=== PATIENT | male | born 1995 | race Caucasian/White ===

== ENCOUNTER 2022-11-11 18:06 | Emergency (ER) | payer OTHER, SELFPAY ==
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
[2022-11-11 18:10] VITALS: BP 112/58; BP 118/71; PULSE 84; PULSE 88; RESP 16; TEMP 37.1; O2SAT 99; BMI 27.1
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
[2022-11-11 19:32] VITALS: BP 131/67; PULSE 84; RESP 20; TEMP 36.5; O2SAT 97
== END 2022-11-11 20:22 | disposition home or self-care (01) ==
PROVIDERS: Emergency Provider Internal Medicine
DX: S43.402A Unspecified sprain of left shoulder joint, initial encounter (principal); V43.52XA Car driver injured in collision with other type car in traffic accident, initial encounter; Y93.89 Activity, other specified; Y92.414 Local residential or business street as the place of occurrence of the external cause; Y99.9 Unspecified external cause status
CPT/HCPCS: 73030; 99283